=== PATIENT | male | born 1960 | race Caucasian/White ===

== ENCOUNTER → 2018-05-13 | Outpatient (CLI) | payer BC | END | disposition home or self-care (01) | LOC: LABPAT 16:20 | PROVIDERS: ATTEND Orthopaedic Surgery | DX: Z01.812 Encounter for preprocedural laboratory examination (principal); M16.11 Unilateral primary osteoarthritis, right hip | CPT/HCPCS: 87070 ==

== ENCOUNTER 2018-05-23 06:42 | Inpatient (IN) | payer BC ==
--- NOTE | 2018-05-22 15:00 | HP ---
HISTORY AND PHYSICAL Surgery is 05/23/2018. Avila Al is a 57-year-old patient seen with symptomatic right hip osteoarthritis. We discussed treatment options. He elected to proceed with right total hip arthroplasty. Consent was obtained. Medical clearance was provided by Dr. Trinidad. PAST MEDICAL HISTORY: Hypertension. PAST SURGICAL HISTORY: Noncontributory. DAILY MEDICATIONS: Lisinopril. ALLERGIES: None. SOCIAL HISTORY: He denies current tobacco use. PHYSICAL EXAMINATION: Evaluation of the right hip, there is limited range of motion with severe pain. Positive hip impingement sign. Straight leg raise is negative. His distal neurovascular exam is intact. RADIOGRAPHS: Radiographs of the right hip reveals severe osteoarthritic changes. IMPRESSION: 1. Right hip osteoarthritis. 2. Hypertension. PLAN: Direct anterior right total hip arthroplasty. MMODL / IJN: [id number] /
[~2018-05-23 06:42] MED LIST: ACETAMINOPHEN TAB 500 MG TAB PO ONE; HYDROmorphone 0.5 MG/0.5 ML SYRINGE IVP PRN; MELOXICAM 7.5 MG TAB PO ONE; MORPHINE SULFATE 4 MG/ML SYRINGE IV PRN; TRANEXAMIC ACID 1,000 MG in SODIUM CHLORIDE 0.9% 100 ML IVPB ONE; ceFAZolin IN SWFI 2 GM/20 ML SYRINGE IVP ONE
[2018-05-23] MEDS: LACTATED RINGERS 1,000 ML IV SCH ×5 (07:17→20:50)
[2018-05-23] MEDS ORDERED: ONDANSETRON 4 MG/2 ML VIAL IVP ONE (07:21)
[2018-05-23] MEDS ORDERED: DEXAMETHASONE SOD PHOSPHATE 10 MG/ML 1 ML VIAL IV ONE (07:22)
[2018-05-23] MEDS ORDERED: MIDAZOLAM 2 MG/2 ML VIAL ONE (07:31)
[2018-05-23] MEDS ORDERED: TRANEXAMIC ACID 1,000 MG/10 ML VIAL ONE (07:31)
[2018-05-23] MEDS ORDERED: PROPOFOL 10 MG/ML 20 ML VIAL IV ONE (07:31)
[2018-05-23] MEDS ORDERED: SODIUM CHLORIDE 0.9% 100 ML BAG ONE (07:31)
[2018-05-23] MEDS ORDERED: ePHEDrine SULFATE/0.9% NACL/PF 50 MG/5 ML SYRINGE IV ONE (07:31)
[2018-05-23] MEDS ORDERED: fentaNYL (PF) 50 MCG/ML 2 ML AMP ONE (07:31)
[2018-05-23] MEDS ORDERED: PHENYLEPHRINE-0.9% NACL SYG 1 MG/10 ML SYRINGE ONE (07:31)
[2018-05-23] MEDS ORDERED: ROPIVACAINE 246.25 MG, EPINEPHrine 0.5 MG, KETOROLAC 30 MG, cloNIDine HCL/PF 80 MCG, WA... MISCELLANE ONE ×5 (08:00)
[2018-05-23] MEDS ORDERED: ceFAZolin 3,000 MG in SODIUM CHLORIDE 0.9% IRRIGATIO 3,000 ML IRRIGATION ONE (08:05)
[2018-05-23] MEDS ORDERED: LACTATED RINGERS 1,000 ML IV ONE (08:41)
[2018-05-23] MEDS ORDERED: traMADol 50 MG TAB PO PRN (09:06)
[2018-05-23] MEDS ORDERED: HYDROmorphone 0.5 MG/0.5 ML SYRINGE IVP PRN ×2 (09:06)
[2018-05-23] MEDS ORDERED: ONDANSETRON 4 MG/2 ML VIAL IVP PRN (09:06)
[2018-05-23] MEDS ORDERED: NALOXONE 0.4 MG/ML 1 ML VIAL IV PRN (09:06)
[2018-05-23] MEDS ORDERED: HYDROcodone/APAP 7.5-325MG 1 EACH TAB PO PRN (09:06)
[2018-05-23] MEDS ORDERED: HYDROmorphone 1 MG/ML 1 ML SYRINGE IVP PRN (09:06)
--- NOTE | 2018-05-23 09:06 | P.OP ---
Date of Procedure: 05/23/18 Preoperative Diagnosis: Right hip osteoarthritis Postoperative Diagnosis: Right hip osteoarthritis Procedure(s) Performed: Direct anterior right total hip arthroplasty Implants: 1. Depuy [place] size 10 press-fit with collar femoral stem 2. Depuy [place] 54 mm press-fit acetabular shell 3. Depuy pinnacle polyethylene acetabular liner neutral 54 OD 36 ID 4. Biolox delta ceramic femoral head 36 mm +1.5 Anesthesia: local, spinal Surgeon: August Moffett Piano Refinisher #1: Joaquín Alford Estimated Blood Loss (ml): 200 Pathology: none sent Condition: stable Disposition: PACU Indications for Procedure: 57-year-old patient seen with symptomatic right hip osteoarthritis. After treatment options were discussed, he elected to proceed with total hip arthroplasty. Operative Findings: See description of procedure Description of Procedure: The patient was taken to the operative suite. Patient underwent a spinal anesthetic by the department of anesthesia. Patient was then transferred to the [place] table. Patient was given preoperative IV antibiotics and TXA. Both lower extremities were placed in standard leg spars. The hip was then prepped and draped in the normal sterile orthopedic fashion. A standard anterior incision was made beginning 3 cm lateral and 1 cm distal to the ASIS extending 10 cm. Dissection was then carried down through the subcutaneous soft tissues down to the fascia overlying the tensor fascia gale. An incision was now made through the fascia. Careful dissection was taken down exposing the tensor fascia gale muscle. A Cobra retractor was now placed along the medial femoral neck and a second one along the lateral femoral neck. The venous circumflex vessels were now identified, cauterized and clipped. We identified the anterior hip capsule. An incision was made through the hip capsule along the lateral border. I performed a partial anterior capsulectomy. Retractors were now placed around the femoral neck itself. A femoral neck cut was now made with a sagittal saw. It was completed with an osteotome at the lateral neck area. The femoral head was now removed without difficulty. The extremity was now rotated to 45 of external rotation. It was locked in position. Residual labrum was now debrided out. Serial reaming was performed of the acetabulum while my physiotherapist's assistant assisted holding an anterior retractor for exposure. Once we reached the appropriate size and a trial was position and fit nicely. The appropriate size was now chosen opened and made available. It was introduced into the acetabulum without difficulty. The C-arm/fluoroscopy was now brought into the operative field. We made sure we had a true AP pelvic view. We now under direct C-arm/fluoroscopy introduced into the acetabular component with appropriate version and inclination. I held the cup in appropriate position while my physiotherapist's assistant used a mallet to seat the acetabular component. I noted the component now to be well seated and stable. Acetabular cup introduce her was removed. The C-arm was pulled back. An appropriate liner was introduced and clicked into position. It was felt to be stable. At this point retractors were removed. The extremity was now placed into 120 external rotation with no traction. The leg was now dropped to the ground and adducted. Appropriate retractors were now positioned along the proximal femur. We also placed our femoral look into position. Additional capsular releasing was performed to gain access to the proximal femur. We now used a box osteotome. A canal finder was now utilized. Serial broaching was now performed with the assistance of my physiotherapist's assistant tapping the broaches down with a mallet while held the broach in appropriate rotation and position. This was done until we reached the appropriate size with good overall rotational stability. Appropriate calcar planing was performed. A trial head/neck was placed into position. The hip was now reduced. The C-arm/fluoroscopy was brought back into the operative field. A spot film was obtained of the nonoperative hip. A spot film was obtained of the trial components. Overlays were performed, we noted good overall alignment and positioning for determining leg length. The C-arm/fluoroscopy was pulled back. Retractors were repositioned and the hip was dislocated. The leg was again taken down to the ground and adducted. Appropriate retractors were repositioned as well as the femoral hook. All trial components were removed. The femoral implant was opened along with the femoral head. The femoral implant was in troduced on the appropriate handle into our pre-broached area. I held the component position while my physiotherapist's assistant used a mallet to seat the femoral component. The femoral component was now noted to be well seated and stable.. The femoral head was introduced with good positioning and fixation noted. Retractors were now removed. The hip was now reduced. There appeared be good positioning of the hip confirmed on intraoperative fluoroscopy. Spot films were obtained to document this. A second gram of TXA was given. The deep and superficial soft tissues were infiltrated with local analgesic. Bipolar cautery had been utilized intermittently through the procedure for hemostasis. The wound was irrigated copiously with pulse lavage mechanical irrigation. The fascia was repaired with Vicryl suture. The subcutaneous soft tissues were repaired in layers with Vicryl suture. The skin was approximated with pernio/Dermabond. Sterile dressings were applied. Patient was then awakened, transferred to a bed and taken to recovery in stable condition.
--- NOTE | 2018-05-23 09:49 | XR ---
Limited right hip HISTORY: Anterior hip replacement Intraoperative C-arm image documents the procedure.
--- NOTE | 2018-05-23 09:49 | FL ---
Fluoroscopy HISTORY: Anterior hip replacement 8 seconds fluoroscopy time supplied to the referring clinician. 1 intraoperative C-arm images docume nt the procedure. See dictated report from orthopedic surgery.
[2018-05-23 10:40] VITALS: BMI 33.7
[2018-05-23] MEDS: HYDROcodone/APAP 7.5-325MG 1 EACH TAB PO PRN ×2 (13:58→20:34)
[2018-05-23] MEDS: ceFAZolin IN SWFI 2 GM/20 ML SYRINGE IVP SCH (17:17)
[2018-05-23] MEDS: ENOXAPARIN 40 MG/0.4 ML SYRINGE SQ SCH (20:33)
[2018-05-23] MEDS: SENNOSIDES-DOCUSATE SODIUM 1 EACH TAB PO SCH (20:33)
[2018-05-24] MEDS: ceFAZolin IN SWFI 2 GM/20 ML SYRINGE IVP SCH (00:50)
[2018-05-24] MEDS: HYDROcodone/APAP 7.5-325MG 1 EACH TAB PO PRN ×4 (05:19→22:57)
[2018-05-24] MEDS: LACTATED RINGERS 1,000 ML IV SCH ×3 (05:19→17:51)
[2018-05-24 07:51] LABS: Basophils % (A) 0 %; Eosinophils # (A) 0.1 k/uL (0-0.7); Eosinophils % (A) 1 %; HCT 31.8 % (39.0-53.0); HGB 10.4 gm/dL (13.0-17.5); Lymphocytes # (A) 1.1 k/uL (1.0-4.8); Lymphocytes % (A) 12 %; MCH 29.7 pg (25.0-35.0); MCHC 32.7 g/dL (31.0-37.0); MCV 90.8 fL (80.0-100.0); Mean Platelet Volume 6.8; Monocytes # (A) 0.6 k/uL (0-1.0); Monocytes % (A) 7 %; Neutrophils # (A) 7.1 k/uL (1.3-7.7); Neutrophils % (A) 78 %; Platelet Count 161 k/uL (150-450); RBC 3.51 m/uL (4.30-5.90); RDW 13.6 % (11.5-15.5); WBC 9.1 k/uL (3.8-10.6)
--- NOTE | 2018-05-24 08:14 | CONS ---
CONSULTATION DATE OF CONSULTATION: 05/23/2018 REASON FOR CONSULTATION: Medical management requested by Dr. Moffett. CONSULTATION: This is a very pleasant 57-year-old patient of Dr. Saul Trinidad. Today underwent right total hip arthroplasty. Postprocedure pain is controlled. No nausea, vomiting. No chest pain. Chronic stable medical conditions include COPD, osteoarthritis, obstructive sleep apnea, uses CPAP. Otherwise comfortable. Did tolerate a meal. No new issues. REVIEW OF SYSTEMS: CONSTITUTIONAL: None. HEENT: None. RESPIRATORY: None. CARDIOVASCULAR: None. GASTROINTESTINAL: None. GENITOURINARY: None. MUSCULOSKELETAL: Arthritic pain in joints especially in the knees. DERMATOLOGICAL: None. HEMATOLOGIC: None. LYMPHATIC: None. PSYCHIATRY: None. NEUROLOGICAL: None. PAST MEDICAL HISTORY: COPD, osteoarthritis, obstructive sleep apnea, CPAP. PAST SURGICAL HISTORY: Appendectomy, laminectomy L4-L5, biceps right attach, left elbow surgery. SOCIAL HISTORY: Does not smoke or drink alcohol. 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 FAMILY HISTORY: Pulmonary embolism and leukemia. HOME MEDICATIONS: 1. Vitamin B complex 1 capsule p.o. daily. 2. Co Q10, 100 mg p.o. daily. 3. Multivitamin 1 tablet p.o. daily. 4. Magnesium 500 mg p.o. daily. 5. Lisinopril 20 mg p.o. daily. 6. Vitamin D3, 1000 units p.o. daily. 7. Celebrex 200 mg p.o. daily. 8. Ventolin HFA 1 puff q.i.d. p.r.n. 9. Ultram 50 mg q.6 p.r.n. 10.[place] 7.5 one to two tablets q.6 p.r.n. 11.Colace 100 mg p.o. daily. 12.Aspirin 81 mg p.o. b.i.d. ALLERGIES: None. PHYSICAL EXAMINATION: On examination, temperature 98.7, pulse 69, respirations 16, blood pressure 100/63, pulse ox 99% on room air. GENERAL APPEARANCE: Well built, BMI 32.3, sitting up in a chair, comfortable. EYES: Pupils equal. Conjunctivae normal. HENT: External appearance of nose and ears normal. Oral cavity normal. NECK: JVD not raised. Mass not palpable. RESPIRATORY: Effort . Lungs are clear. CARDIOVASCULAR: First and second sounds normal. No edema. ABDOMEN: Soft, nontender. Liver and spleen not palpable. LYMPHATIC: No lymph node palpable in the neck or axillae. PSYCHIATRY: Alert and oriented x3. Mood affect normal. NEUROLOGICAL: Pupils equal. Cranial nerves grossly intact. Power and sensation grossly intact. MUSCULOSKELETAL: Evidence of osteoarthritis of the knees. Dressing of the right hip. INVESTIGATIONS: No blood work. ASSESSMENT: 1. Right total hip arthroplasty. 2. Primary osteoarthritis. 3. Obstructive sleep apnea, uses CPAP. 4. Chronic obstructive pulmonary disease in a nonsmoker. PLAN: Home medications are resumed. Pain control is in place. Patient getting Lovenox for DVT prophylaxis. Care was discussed with the patient. Questions were answered. Patient should follow with Dr. Trinidad for some more weight loss measures. He has been successfully trying to lose weight. Thank you Dr. Moffett. LAVERNEL / LOLITAN: [id number] /
[2018-05-24] MEDS: MELOXICAM 7.5 MG TAB PO SCH (10:05)
[2018-05-24] MEDS: FAMOTIDINE 20 MG TAB PO SCH (10:05)
--- NOTE | 2018-05-24 12:35 | P.PN ---
Progress Note - Text Progress Note Date: 05/24/18 Patient seen lying in bed comfortably. He does report some right hip area pain. Incision stable. Logrolling of the hip is without pain. Distal neurovascular exam is intact. Impression: Status post direct anterior right total hip arthroplasty Plan: Medical management DVT prophylaxis Physical therapy
[2018-05-24] MEDS: MELATONIN 5 MG TABLET PO SCH (20:48)
[2018-05-24] MEDS: SENNOSIDES-DOCUSATE SODIUM 1 EACH TAB PO SCH (20:48)
[2018-05-24] MEDS: ENOXAPARIN 40 MG/0.4 ML SYRINGE SQ SCH (20:48)
[2018-05-25] MEDS: LACTATED RINGERS 1,000 ML IV SCH ×4 (01:41→21:33)
[2018-05-25] MEDS: HYDROcodone/APAP 7.5-325MG 1 EACH TAB PO PRN ×3 (06:26→17:50)
[2018-05-25] MEDS: FAMOTIDINE 20 MG TAB PO SCH (07:41)
[2018-05-25] MEDS: FERROUS SULFATE 325 MG TAB PO SCH ×2 (07:41→17:50)
[2018-05-25] MEDS: MELOXICAM 7.5 MG TAB PO SCH (07:41)
--- NOTE | 2018-05-25 07:48 | PN ---
PROGRESS NOTE DATE OF SERVICE: 05/24/2018 PRESENTING COMPLAINT: Right hip surgery. INTERVAL HISTORY: Patient is status post right hip surgery, doing much better. Sitting up. Pain is controlled. No nausea, vomiting. Doing well. did tolerate a diet, did work with therapy. REVIEW OF SYSTEMS: Done for constitutional, cardiovascular, GI, pulmonary; relevant findings as above. CURRENT MEDICATIONS: Reviewed. PHYSICAL EXAMINATION: Temperature 98.9, pulse 69, respiration 16, blood pressure 113/71, pulse ox 96% on room air. GENERAL APPEARANCE: Sitting up om chair, comfortable. EYES: Pupils equal, conjunctivae normal. NECK: JVD not raised, mass not palpable. RESPIRATORY: Effort normal. LUNGS: Clear. CARDIOVASCULAR: First and second sounds are normal. No edema. ABDOMEN: Soft, nontender. Liver and spleen not palpable. PSYCHIATRY: Alert and oriented x3. Mood and affect normal. INVESTIGATIONS: Hemoglobin 10.4. ASSESSMENT: 1. Right total hip arthroplasty. 2. Primary osteoarthritis. 3. Obstructive sleep apnea, uses CPAP. 4. Chronic obstructive pulmonary disease in a nonsmoker. 5. Suspect acute postoperative blood loss anemia expected from surgery. PLAN: Continue current medication and treatment plan. Care was discussed with the patient. Will add iron supplementation. . MMODL / IJN: [id number] /
--- NOTE | 2018-05-25 11:14 | P.PN ---
Progress Note - Text Progress Note Date: 05/25/18 Patient seen lying in bed comfortably. He does report having a bout of dizziness this morning which has improved. He has no other complaints at this point. Incision appears stable. Logrolling of the hip is without pain. Homans and Jesus negative. Distal neurovascular exam is intact. Impression: Status post direct anterior right total hip arthroplasty Plan: Physical therapy DVT prophylaxis Medical management Anticipate discharge tomorrow
[2018-05-25] MEDS: SENNOSIDES-DOCUSATE SODIUM 1 EACH TAB PO SCH (20:31)
[2018-05-25] MEDS: ENOXAPARIN 40 MG/0.4 ML SYRINGE SQ SCH (20:31)
[2018-05-25] MEDS: MELATONIN 5 MG TABLET PO SCH (20:32)
--- NOTE | 2018-05-26 00:39 | PN ---
PROGRESS NOTE DATE OF SERVICE: 05/25/2018 PRESENTING COMPLAINT: Right hip surgery. INTERVAL HISTORY: Patient is status post right hip surgery, doing well. Patient did walk in the hallway. Did tolerate his diet, not feeling well. REVIEW OF SYSTEMS: Done for constitutional, cardiovascular, GI, pulmonary; relevant findings as above. CURRENT MEDICATIONS: Reviewed. PHYSICAL EXAMINATION: VITAL SIGNS: Temperature 98, pulse 72, respiration 16, blood pressure 107/65. Pulse ox 96% on room air. GENERAL APPEARANCE: Sitting up. Comfortable. EYES: Pupils equal. Conjunctivae normal. NECK: JVD not raised. Mass not palpable. RESPIRATORY: Effort normal. LUNGS are clear. CARDIOVASCULAR: 1st and 2nd sounds normal. ABDOMEN: Soft, nontender. Liver and spleen not palpable. PSYCHIATRY: Alert and oriented x3. Mood and affect is normal. INVESTIGATIONS: Hemoglobin 10.4. ASSESSMENT: 1. Right total hip arthroplasty. 2. Primary osteoarthritis. 3. Obstructive sleep apnea uses CPAP. 4. Chronic obstructive pulmonary disease in a nonsmoker. 5. Acute postoperative blood loss anemia expected from surgery. 6. Blood pressure is running on the lower side. Continue to hold off the patient's lisinopril not to be taken currently. PLAN: Continue medication and treatment plan. Keep the patient off lisinopril. Check a CBC in the morning. Put the patient on iron supplementation. MMODL / IJN: [id number] /
[2018-05-26] MEDS: FERROUS SULFATE 325 MG TAB PO SCH (07:06)
[2018-05-26] MEDS: FAMOTIDINE 20 MG TAB PO SCH (07:06)
[2018-05-26] MEDS: HYDROcodone/APAP 7.5-325MG 1 EACH TAB PO PRN ×2 (07:06→15:05)
[2018-05-26] MEDS: MELOXICAM 7.5 MG TAB PO SCH (07:06)
[2018-05-26 08:02] LABS: Basophils # (A) 0.1 k/uL (0-0.2); Basophils % (A) 1 %; Eosinophils # (A) 0.5 k/uL (0-0.7); Eosinophils % (A) 6 %; HGB 10.9 gm/dL (13.0-17.5); Lymphocytes # (A) 1.3 k/uL (1.0-4.8); Lymphocytes % (A) 16 %; MCH 30.7 pg (25.0-35.0); MCHC 33.2 g/dL (31.0-37.0); MCV 92.4 fL (80.0-100.0); Mean Platelet Volume 6.9; Monocytes # (A) 0.6 k/uL (0-1.0); Monocytes % (A) 8 %; Neutrophils # (A) 5.2 k/uL (1.3-7.7); Neutrophils % (A) 67 %; Platelet Count 188 k/uL (150-450); RBC 3.57 m/uL (4.30-5.90); RDW 13.4 % (11.5-15.5); WBC 7.8 k/uL (3.8-10.6)
[2018-05-26 08:26] VITALS: BP 128/79; PULSE 85; RESP 16; TEMP 98.6
--- NOTE | 2018-05-26 11:48 | P.PN ---
Progress Note - Text Progress Note Date: 05/26/18 Patient seen lying in bed comfortably. Patient reports no new complaints Incision stable. Painless logrolling of the hip. Distal neurovascular exam is intact. Negative Jesus, negative Homans Impression Status post direct anterior right total hip arthroplasty Plan Transfer to rehab today
--- NOTE | 2018-05-26 13:49 | P.DS ---
<Joaquín Alford M - Last Filed: 05/23/18 12:51> Hospital Course: Date of admission: 05/23/2018 Date of discharge: [] Admission diagnosis: Status post direct anterior right total hip arthroplasty Discharge diagnosis: Same Attending physician: Dr. Moffett Surgical procedures: Direct anterior right total hip arthroplasty Brief history: Patient is a 57-year-old male with a history of with progressive primary right hip osteoarthritis. At this point patient has failed conservative treatment measures and has opted to proceed with a elective direct anterior right total hip arthroplasty. Hospital course: Details of patient's surgery can be found in operative report. Patient tolerated the procedure well and was subsequently transported to orthopedic floor. Patient's orthopeidc and medical care was provided daily. Patient had daily laboratory tests performed for evaluation of overall blood counts. Patient had daily physical therapy to include strengthening range of motion as well as education with walker ambulation. Patient was treated with Lovenox for their postoperative DVT prophylaxis during their inpatient stay. Patient was noted to have a relatively uneventful postoperative course. Patient reported satisfactory pain control with oral pain medications by postoperative day 0. Patient showed satisfactory progress with physical therapy. Patient moved steadily through the program and had no difficulty meeting the goals by postoperative day []. Given patient's otherwise satisfactory course and having met physical therapy goals, plan is to discharge patient [home] on postoperative day []. Discharge condition/disposition: Patient will be discharged [home] in stable condition. Discharge medications: Instructions are given on resumption of patient's normal daily medications per primary care recommendation, in addition patient will be prescribed [[place] 7.5 mg/325 mg, tramadol 50 mg, Colace 100 mg, aspirin 81 mg]. Discharge instructions: 1. Wound care and infection precautions, [keep incision dry and covered while showering], no lotions, creams, moisturizers. No soaking, tubs, pools, hottubs. Do not scrub over the incision. 2. Weight-bear [as tolerated] with walker / cane until follow-up. 3. Ice and elevate when necessary. Do not exceed 20 minutes per hour with ice pack. 4. Utilize compression sleeve until seen at first follow up appointment. 5. Visiting nursing care. 6. Home physical therapy. 7. Pain meds and anticoagulants per prescription. 8. Pain medication has potential to cause constipation. Increase oral fluid and fiber intake. Contact primary care provider if you have not had a bowel movement within 48 hours after discharge 9. No anti-inflammatory medication until discussed at first post operative visit, this including Motrin, Aleve, Mobic, Diclofenac. 10. Follow up in office at 2 weeks postop with Servando Alford PA-C 11. Follow up with your primary care doctor 7-10 days after discharge. 12. Contact [facility] with any questions, . Procedures: Direct anterior right total hip arthroplasty Patient Condition at Discharge: Good Plan - Discharge Summary Discharge Rx Participant: No New Discharge Prescriptions: New Aspirin [Adult Low Dose Aspirin EC] 81 mg PO BID #60 tablet. Docusate [Colace] 100 mg PO DAILY #30 capsule HYDROcodone/APAP 7.5-325MG [[place] 7.5] 1 - 2 each PO Q6HR PRN #40 tab PRN Reason: Pain traMADol HCl [Ultram] 50 mg PO Q6H PRN #28 tab PRN Reason: Pain Ferrous Sulfate [Iron (65 MG Elemental)] 325 mg PO BID-W/MEALS tab Melatonin 5 mg PO HS tablet Continue Cholecalciferol [Vitamin D3] 1,000 unit PO DAILY Magnesium Gluconate [Magonate] 500 mg PO DAILY Ubidecarenone [Co Q-10] 100 mg PO DAILY Multivitamins, Thera [Multivitamin (formulary)] 1 tab PO DAILY Vitamin B Complex 1 cap PO DAILY Albuterol Inhaler [Ventolin Hfa Inhaler] 1 puff INHALATION RT-QID PRN PRN Reason: Shortness Of Breath Or Wheezing Discontinued Celecoxib [CeleBREX] 200 mg PO DAILY Lisinopril 20 mg PO QAM Discharge Medication List Albuterol Inhaler [Ventolin Hfa Inhaler] 1 puff INHALATION RT-QID PRN 05/13/18 [History] Cholecalciferol [Vitamin D3] 1,000 unit PO DAILY 05/13/18 [History] Magnesium Gluconate [Magonate] 500 mg PO DAILY 05/13/18 [History] Multivitamins, Thera [Multivitamin (formulary)] 1 tab PO DAILY 05/13/18 [History] Ubidecarenone [Co Q-10] 100 mg PO DAILY 05/13/18 [History] Vitamin B Complex 1 cap PO DAILY 05/13/18 [History] Aspirin [Adult Low Dose Aspirin EC] 81 mg PO BID #60 tablet. 05/23/18 [Rx] Docusate [Colace] 100 mg PO DAILY #30 capsule 05/23/18 [Rx] HYDROcodone/APAP 7.5-325MG [[place] 7.5] 1 - 2 each PO Q6HR PRN #40 tab 05/23/18 [Rx] traMADol HCl [Ultram] 50 mg PO Q6H PRN #28 tab 05/23/18 [Rx] Ferrous Sulfate [Iron (65 MG Elemental)] 325 mg PO BID-W/MEALS tab 05/25/18 [Rx] Melatonin 5 mg PO HS tablet 05/25/18 [Rx] Follow up Appointment(s)/Referral(s): Saul Trinidad MD [Primary Care Provider] - 05/30/18 11:15 am Joaquín Alford PAC [PHYSICIAN APPROVER] - 06/08/18 3:10 pm Activity/Diet/Wound Care/Special Instructions: Orthopedic Discharge Instructions: 1. Wound care and infection precautions, keep incision dry and covered while showering, no lotions, creams, moisturizers. No soaking, pools, hot tubs. Do not scrub over incision. 2. Weight-bear as tolerated with walker / cane until follow-up. 3. Ice and elevate when necessary. Do not exceed 20 minutes per hour with ice pack. 4. Utilize compression sleeve until seen at first follow up appointment. 5. Pain meds and anticoagulants per prescription. 6. Pain medication has potential to cause constipation. Increase oral fluid and fiber intake. Contact primary care provider if you have not had a bowel movement within 48 hours after discharge. 7. No anti-inflammatory medication until discussed at first post operative visit, this including Motrin, Aleve, Mobic, Diclofenac. 8. Follow up in office at 2 weeks postop with Servando Alford PA-C 9. Follow up with your primary care doctor 7-10 days after discharge. 10. Contact [facility] with any questions, . Discharge Disposition: HOME WITH HOME HEALTH SERVICES <August Moffett - Last Filed: 05/26/18 13:49> Providers Date of admission: 05/23/18 06:42 Expected date of discharge: 05/26/18 Attending physician: August Moffett Consults: 05/23/18 09:06 Consult Physician Routine Consulting Provider: Jono Martinez Consult Reason/Comments: Medical management Do you want consulting provider notified?: Yes Primary care physician: Saul Trinidad
--- NOTE | 2018-05-26 23:25 | PN ---
PROGRESS NOTE DATE OF SERVICE: 05/26/2018 PRESENTING COMPLAINT: Right hip surgery. INTERVAL HISTORY: Patient is status post right hip surgery, doing well, walking better. Antihypertensives have been held. No episodes of dizziness. Tolerating a diet. Going to rehab today. Pain is controlled. REVIEW OF SYSTEMS: Done for constitutional, cardiovascular, GI, pulmonary; relevant findings as above. CURRENT MEDICATIONS: Reviewed. Lisinopril has been discontinued. PHYSICAL EXAMINATION: Temperature 98.6, pulse 85, respiration 16, blood pressure 120/79, pulse ox 96% on room air. GENERAL APPEARANCE: Sitting up, comfortable. EYES: Pupils equal. Conjunctivae normal. NECK: JVD not raised. Mass not palpable. RESPIRATORY: Effort normal. Lungs are clear. CARDIOVASCULAR: First and second sounds normal. No edema. ABDOMEN: Soft, non-tender. Liver and spleen not palpable. PSYCHIATRY: Alert and oriented x3. Mood and affect normal. INVESTIGATIONS: Hemoglobin is 10.9. ASSESSMENT: 1. Right total hip arthroplasty. 2. Primary osteoarthritis. 3. Obstructive sleep apnea. Uses CPAP. 4. Chronic obstructive pulmonary disease in a nonsmoker. 5. Acute postoperative blood loss anemia, expected from surgery. 6. Antihypertensives have been held off. PLAN: Care was discussed with the patient. I did explain to him that he should keep a close eye on his blood pressure, checking it on a regular basis. Probably down the road he will need to maybe go back to his antihypertensive. Patient is being discharged to rehab. VASHTI / HUDSON: [id number] /
== END 2018-05-26 15:05 | DRG 470 ==
LOC: 2ORMAIN 06:42 → 4SSUR 09:31
PROVIDERS: ADMIT Orthopaedic Surgery; ATTEND Orthopaedic Surgery
PROC: 0SR904A Replacement of Right Hip Joint with Ceramic on Polyethylene Synthetic Substitute, Uncemented, Open Approach (ICD-10-PCS; principal; 2018-05-23 07:30)
DX: M16.11 Unilateral primary osteoarthritis, right hip (principal); D62 Acute posthemorrhagic anemia; G47.33 Obstructive sleep apnea (adult) (pediatric); M17.0 Bilateral primary osteoarthritis of knee; I10 Essential (primary) hypertension; J44.9 Chronic obstructive pulmonary disease, unspecified; E66.9 Obesity, unspecified; Z68.32 Body mass index [BMI] 32.0-32.9, adult; Z79.82 Long term (current) use of aspirin; Z79.1 Long term (current) use of non-steroidal anti-inflammatories (NSAID); Z79.899 Other long term (current) drug therapy; Z99.89 Dependence on other enabling machines and devices; Z90.49 Acquired absence of other specified parts of digestive tract; Z86.59 Personal history of other mental and behavioral disorders; Z80.6 Family history of leukemia; Z82.49 Family history of ischemic heart disease and other diseases of the circulatory system
CPT/HCPCS: 73501; 85025; 86850; 86900; 86901; 88300